=== PATIENT | female | born 1940 | race Caucasian/White ===

== ENCOUNTER 2019-03-05 06:17 | Inpatient (IN) | payer MEDICARE ==
[~2019-03-05] VITALS: Ht 160 cm; Wt 62.5 kg
[2019-03-05 07:14] LABS: BASOPHILS # (AUTO) 0.1 X10'3 (0-0.2); BASOPHILS % (AUTO) 0.5 % (0-1); EOSINOPHILS % (AUTO) 0.2 % (0-6); HEMATOCRIT 43.1 % (35.0-45.0); HEMOGLOBIN 14.5 g/dl (12.0-16.0); LYMPHOCYTES # (AUTO) 1.5 X10'3 (1.1-4.8); LYMPHOCYTES % (AUTO) 13.6 % (21-51); MEAN CORPUSCULAR HGB CONC 33.7 g/dL (33.0-36.5); MEAN PLATELET VOLUME 6.8 FL (7.4-10.4); MONOCYTES # (AUTO) 0.8 X10'3 (0-0.9); MONOCYTES % (AUTO) 7.4 % (2-12); NEUTROPHILS # (AUTO) 8.4 X10'3 (1.8-7.7); NEUTROPHILS % (AUTO) 78.3 % (42-75); PLATELET COUNT 281 X10'3 (140-440); RED BLOOD COUNT 4.14 X10'6 (4.20-5.60); RED CELL DISTRIBUTION WIDTH 15.6 % (11.5-14.5); WHITE BLOOD COUNT 10.7 X10'3 (4.5-11.0)
[2019-03-05 07:21] LABS: PARTIAL THROMBOPLASTIN TIME 28 SECONDS (22-32)
[2019-03-05 07:29] LABS: ALANINE AMINOTRANSFERASE 27 U/L (12-78); ALBUMIN 3.7 G/DL (3.4-5.0); ALBUMIN/GLOBULIN RATIO 0.9 (1.1-1.5); ALKALINE PHOSPHATASE 55 IU/L (46-116); ANION GAP 10 (8-16); ASPARTATE AMINO TRANSFERASE 18 U/L (10-37); BILIRUBIN,TOTAL 0.3 MG/DL (0.1-1.0); BLOOD UREA NITROGEN 14 MG/DL (7-18); BUN/CREATININE RATIO 16.9 (6.6-38.0); CALCIUM 9.4 MG/DL (8.5-10.1); CHLORIDE 104 MMOL/L (99-107); CREATININE 0.83 MG/DL (0.40-0.90); GLUCOSE 128 MG/DL (70-104); POTASSIUM 3.8 MMOL/L (3.5-5.1); SODIUM 140 MMOL/L (135-145); TOTAL CARBON DIOXIDE 25.7 MMOL/L (24-32); TOTAL PROTEIN 7.7 G/DL (6.4-8.2); eGFR 66 ML/MIN
[2019-03-05 08:34] LABS: CLARITY,URINE SLIGHTLY CLOUDY (Clear); COLOR,URINE YELLOW (Yellow); GLUCOSE, URINE NEGATIVE (Neg); KETONES,URINE 15 mg/dl (Neg); LEUKOCYTE ESTERASE ,URINE TRACE (Neg); NITRITES, URINE NEGATIVE (Neg); OCCULT BLOOD,URINE TRACE-INTACT (Neg); PH,URINE 7.5 (4.8-8.0); PROTEIN,URINE NEGATIVE (Neg); UROBILINOGEN,URINE 0.2 E.U/dL (0.2-1.0)
[2019-03-05 08:37] LABS: UA COLLECTION TYPE CLN CATCH MIDSTREAM
[2019-03-05 08:41] LABS: SQUAMOUS EPITHELIAL CELL,UR MANY /LPF (FEW)
[2019-03-05 08:42] LABS: BACTERIA,URINE FEW /HPF (Neg); WBC CLUMPS,URINE FEW /HPF (NEGATIVE)
[2019-03-05] MEDS ORDERED: CITA20TA28 PO (08:54)
[2019-03-05] MEDS ORDERED: SYN0.088T PO (08:54)
[2019-03-05] MEDS ORDERED: DENO60DI SQ (08:54)
[2019-03-05] MEDS ORDERED: potassium Cl 20 mEq SR tablet PO PRN ×2 (09:35)
[2019-03-05] MEDS ORDERED: ondansetron/PF 4mg/2ml inj IV PRN (09:35)
[2019-03-05] MEDS ORDERED: HYDROcodone/acetaminophen 10/325mg tab PO PRN (09:35)
[2019-03-05] MEDS ORDERED: magnesium 4gm in 100ml NS 100 ML IV PRN (09:35)
[2019-03-05] MEDS ORDERED: acetaminophen 650mg rectal suppository RC PRN (09:35)
[2019-03-05] MEDS ORDERED: diphenhydrAMINE 25mg capsule PO PRN (09:35)
[2019-03-05] MEDS ORDERED: diphenhydrAMINE 50 mg/ml inj IV PRN (09:35)
[2019-03-05] MEDS ORDERED: mag hydrox/Alum hydrox/simeth 30ml oral suspension PO PRN (09:35)
[2019-03-05] MEDS ORDERED: metoclopramide 5 mg/ml inj IV PRN (09:35)
[2019-03-05] MEDS ORDERED: HYDROcodone/acetaminophen 5mg/325mg tablet PO PRN (09:35)
[2019-03-05] MEDS ORDERED: magnesium Cl slow-release 64mg tablet PO PRN (09:35)
[2019-03-05] MEDS ORDERED: magnesium hydroxide 30ml (MOM) UD suspension PO PRN (09:35)
[2019-03-05] MEDS ORDERED: acetaminophen 325mg tablet PO PRN ×2 (09:35)
[2019-03-05] MEDS ORDERED: magnesium 2GM in 50ml NS 50 ML IV PRN (09:35)
[2019-03-05] MEDS: K and/or MAG REPLACEMENT MC SCH (09:35)
[2019-03-05] MEDS ORDERED: potassium CL 10mEq/100ml bag 100 ML IV PRN ×2 (09:35)
[2019-03-05] MEDS ORDERED: morphine 2 MG/ML inj. syringe IV PRN ×2 (09:35)
[2019-03-05] MEDS ORDERED: ondansetron/PF 4mg/2ml inj IV ONE (09:45)
[2019-03-05] MEDS ORDERED: morphine 4 MG/ML inj SYRINge IV PRN (09:45)
[2019-03-05] MEDS: normal saline 1000ml 1,000 ML IV SCH ×2 (10:15→21:42)
[2019-03-05] MEDS: metroNIDAZOLE-Flagyl 500mg/NS 100 ML IV SCH ×2 (10:15→16:20)
[2019-03-05] MEDS ORDERED: CITA-116 PO (10:20)
[2019-03-05] MEDS ORDERED: LEVO50TA8 PO (10:20)
[2019-03-05 10:23] LABS: HEMOGLOBIN A1C 5.7 % (4.5-6.2)
[2019-03-05] MEDS: levoFLOXACIN-Levaquin 750MG/D5 150 ML IV SCH (12:36)
[2019-03-05 15:00] VITALS: BP 110/58
[2019-03-05] MEDS ORDERED: PEG 3350/Na sulf,bicarb,Cl/KCl oral sol 4 liter bottle PO ONE (18:15)
--- NOTE | 2019-03-05 18:19 | NUR ---
Received report from MARYELLEN Michelle. Assumed patient care with MARYELLEN Larson. Patient resting comfortably with eyes closed with even respirations on room air. Sitter at bedside. Call light and items of frequent use within reach. Will continue to monitor. Addendum: 03/06/19 at 0243 by Erma Cook RN PCT at bedside
--- NOTE | 2019-03-05 18:35 | NUR ---
Patient in room NGOC 360. I have received report from MARYELLEN Michelle and had the opportunity to ask questions and assume patient care.
--- NOTE | 2019-03-05 18:37 | NUR ---
Problems reprioritized. Patient report given, questions answered & plan of care reviewed with MARYELLEN Ritchie and MARYELLEN Larson.
[2019-03-05 19:00] VITALS: BP 107/52
[2019-03-05] MEDS: lactobacillus rhamnosus 10,000 MMU CELLS/CAPSULE PO SCH (19:28)
[2019-03-05] MEDS ORDERED: temazepam 15mg capsule PO PRN (21:00)
[2019-03-05 21:39] LABS: OCCULT BLOOD STOOL POSITIVE (Neg)
[2019-03-06] VITALS (9 sets, daily range): BP systolic 102–128; BP diastolic 44–70
[2019-03-06] MEDS: metroNIDAZOLE-Flagyl 500mg/NS 100 ML IV SCH ×3 (00:09→18:21)
[2019-03-06 06:13] LABS: BASOPHILS % (AUTO) 0.4 % (0-1); EOSINOPHILS # (AUTO) 0.1 X10'3 (0-0.9); EOSINOPHILS % (AUTO) 0.7 % (0-6); HEMATOCRIT 37.7 % (35.0-45.0); HEMOGLOBIN 12.6 g/dl (12.0-16.0); LYMPHOCYTES % (AUTO) 19.2 % (21-51); MEAN CORPUSCULAR HEMOGLOBIN 35.2 PG (27.0-31.0); MEAN CORPUSCULAR HGB CONC 33.6 g/dL (33.0-36.5); MEAN CORPUSCULAR VOLUME 104.8 FL (78-98); MEAN PLATELET VOLUME 6.9 FL (7.4-10.4); MONOCYTES # (AUTO) 1.4 X10'3 (0-0.9); MONOCYTES % (AUTO) 13.4 % (2-12); NEUTROPHILS # (AUTO) 6.7 X10'3 (1.8-7.7); NEUTROPHILS % (AUTO) 66.3 % (42-75); PLATELET COUNT 249 X10'3 (140-440); RED CELL DISTRIBUTION WIDTH 16.2 % (11.5-14.5); WHITE BLOOD COUNT 10.2 X10'3 (4.5-11.0)
--- NOTE | 2019-03-06 06:15 | NUR ---
Problems reprioritized. Patient report given, questions answered & plan of care reviewed with MARYELLEN Michelle.
--- NOTE | 2019-03-06 06:15 | NUR ---
Problems reprioritized. Patient report given, questions answered & plan of care reviewed with MARYELLEN Michelle.
--- NOTE | 2019-03-06 06:17 | NUR ---
Patient in room NGOC 360. I have received report from Marsha RN and MARYELLEN Ritchie and had the opportunity to ask questions and assume patient care.
[2019-03-06 06:36] LABS: ALANINE AMINOTRANSFERASE 18 U/L (12-78); ALBUMIN 2.9 G/DL (3.4-5.0); ALBUMIN/GLOBULIN RATIO 0.9 (1.1-1.5); ALKALINE PHOSPHATASE 42 IU/L (46-116); ANION GAP 5 (8-16); ASPARTATE AMINO TRANSFERASE 15 U/L (10-37); BILIRUBIN,TOTAL 0.3 MG/DL (0.1-1.0); BLOOD UREA NITROGEN 6 MG/DL (7-18); BUN/CREATININE RATIO 8.6 (6.6-38.0); CALCIUM 8.3 MG/DL (8.5-10.1); CHLORIDE 112 MMOL/L (99-107); CHOL/HDL RATIO 2.4 (0.00-4.99); CHOLESTEROL 142 MG/DL (0-200); GLUCOSE 102 MG/DL (70-104); HDL CHOLESTEROL 60 MG/DL (35-60); LDL CHOLESTEROL 74 MG/DL (50-100); PHOSPHORUS 1.8 MG/DL (2.3-4.5); POTASSIUM 3.4 MMOL/L (3.5-5.1); SODIUM 144 MMOL/L (135-145); TOTAL CARBON DIOXIDE 26.8 MMOL/L (24-32); TOTAL PROTEIN 6.2 G/DL (6.4-8.2); TRIGLYCERIDES 41 MG/DL (20-135); eGFR 81 ML/MIN
[2019-03-06] MEDS: lactobacillus rhamnosus 10,000 MMU CELLS/CAPSULE PO SCH ×2 (08:00→19:37)
[2019-03-06] MEDS: K and/or MAG REPLACEMENT MC SCH (08:00)
[2019-03-06] MEDS: levoFLOXACIN-Levaquin 750MG/D5 150 ML IV SCH (08:20)
[2019-03-06] MEDS: normal saline 1000ml 1,000 ML IV SCH ×2 (08:20→15:34)
[2019-03-06] MEDS: pantoprazole 40 MG vial IV SCH (08:21)
[2019-03-06] MEDS ORDERED: potassium Cl 40MEQ/NS 500ml 500 ML IV ONE (09:50)
[2019-03-06 10:12] LABS: C DIFF SPECIMEN=DIARRHEA? ACCEPTABLE; C DIFFICILE TOXINS A&B NEGATIVE (Neg)
[2019-03-06 10:13] LABS: C DIFF ANTIGEN NEGATIVE (NEGATIVE)
[2019-03-06] MEDS ORDERED: fentaNYL/PF 50MCG/1 ML 2ML syringe ONE (15:37)
[2019-03-06] MEDS ORDERED: MIDAZolam 5mg/5ml vial ONE (15:37)
--- NOTE | 2019-03-06 16:37 | NUR ---
REVIEWED STUDENT NURSE CHARTING
--- NOTE | 2019-03-06 17:40 | NUR ---
Student documentation: I have reviewed and agree with all interventions, assessments performed and documented by Lisa Casiano .
--- NOTE | 2019-03-06 18:30 | NUR ---
Received report from MARYELLEN Michelle. Patient is awake and alert on room air, in no apparent distress. Call light and items of frequent use within reach. Will continue to monitor.
--- NOTE | 2019-03-06 18:40 | NUR ---
Problems reprioritized. Patient report given, questions answered & plan of care reviewed with MARYELLEN Ritchie.
[2019-03-07] VITALS: BP 99/41
[2019-03-07] MEDS: metroNIDAZOLE-Flagyl 500mg/NS 100 ML IV SCH ×2 (00:14→07:27)
[2019-03-07] MEDS: normal saline 1000ml 1,000 ML IV SCH ×2 (00:18→11:34)
[2019-03-07 05:36] LABS: BASOPHILS # (AUTO) 0.1 X10'3 (0-0.2); BASOPHILS % (AUTO) 0.6 % (0-1); EOSINOPHILS # (AUTO) 0.3 X10'3 (0-0.9); EOSINOPHILS % (AUTO) 3.2 % (0-6); HEMATOCRIT 35.8 % (35.0-45.0); HEMOGLOBIN 12.3 g/dl (12.0-16.0); LYMPHOCYTES # (AUTO) 2.3 X10'3 (1.1-4.8); MEAN CORPUSCULAR HEMOGLOBIN 35.6 PG (27.0-31.0); MEAN CORPUSCULAR HGB CONC 34.4 g/dL (33.0-36.5); MEAN CORPUSCULAR VOLUME 103.5 FL (78-98); MEAN PLATELET VOLUME 6.8 FL (7.4-10.4); MONOCYTES # (AUTO) 1.2 X10'3 (0-0.9); MONOCYTES % (AUTO) 12.8 % (2-12); NEUTROPHILS # (AUTO) 5.3 X10'3 (1.8-7.7); NEUTROPHILS % (AUTO) 58.4 % (42-75); PLATELET COUNT 236 X10'3 (140-440); RED BLOOD COUNT 3.46 X10'6 (4.20-5.60); WHITE BLOOD COUNT 9.1 X10'3 (4.5-11.0)
[2019-03-07 05:49] LABS: ALANINE AMINOTRANSFERASE 22 U/L (12-78); ALBUMIN 2.7 G/DL (3.4-5.0); ALBUMIN/GLOBULIN RATIO 0.9 (1.1-1.5); ALKALINE PHOSPHATASE 37 IU/L (46-116); ANION GAP 5 (8-16); ASPARTATE AMINO TRANSFERASE 16 U/L (10-37); BILIRUBIN,TOTAL 0.3 MG/DL (0.1-1.0); BLOOD UREA NITROGEN 2 MG/DL (7-18); BUN/CREATININE RATIO 2.8 (6.6-38.0); CALCIUM 7.6 MG/DL (8.5-10.1); CHLORIDE 114 MMOL/L (99-107); CREATININE 0.71 MG/DL (0.40-0.90); GLUCOSE 92 MG/DL (70-104); MAGNESIUM 1.9 MG/DL (1.5-2.4); PHOSPHORUS 1.7 MG/DL (2.3-4.5); SODIUM 145 MMOL/L (135-145); TOTAL PROTEIN 5.7 G/DL (6.4-8.2); eGFR 80 ML/MIN
--- NOTE | 2019-03-07 06:30 | NUR ---
Problems reprioritized. Patient report given, questions answered & plan of care reviewed with MARYELLEN Michelle.
--- NOTE | 2019-03-07 06:30 | NUR ---
Patient in room NGOC 360. I have received report from MARYELLEN Ritchie and had the opportunity to ask questions and assume patient care.
[2019-03-07] MEDS: K and/or MAG REPLACEMENT MC SCH (07:14)
[2019-03-07 07:21] VITALS: BP 122/56
[2019-03-07] MEDS: lactobacillus rhamnosus 10,000 MMU CELLS/CAPSULE PO SCH (07:27)
[2019-03-07] MEDS: pantoprazole 40 MG vial IV SCH (07:27)
[2019-03-07] MEDS: levoFLOXACIN-Levaquin 750MG/D5 150 ML IV SCH (09:20)
[2019-03-07 11:00] VITALS: BP 121/53
[2019-03-07] MEDS ORDERED: PANT40TA4 PO (12:35)
[2019-03-07] MEDS ORDERED: METR-159 PO (12:35)
[2019-03-07] MEDS ORDERED: LACT1CAP26 PO (12:35)
[2019-03-07] MEDS ORDERED: LEVO500T89 PO (12:35)
--- NOTE | 2019-03-07 14:00 | NUR ---
Patient discharged home via family and taken from unit via wheelchair with x1 staff. Patient alert, oriented, and in no apparent distress at time of discharge. PIV removed with cannula intact, tele monitor removed and tele chambers notified. Patient was sent with prescription for new medications and these were sent into [facility] per patient request. Patient and family were given discharge instructions and given time for questions and answers. Much of this time was spent discussing appropriate diet choices and they were sent with diet guides from the distribution analyst. Patient and family stated an understanding of these instructions. Patient took all belongings with her.
[2019-03-07] MEDS ORDERED: NEUPHOSK PO (17:04)
--- NOTE | 2019-03-07 17:09 | NUR ---
Patient discharged home but phos was 1.7. Dr. 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 Patient called and informed of this and patient stated that she is going to go and pick the medication up tonight and start taking it.
[2019-03-09 11:41] LABS: OCCULT BLOOD STOOL POSITIVE (Neg)
== END 2019-03-07 14:00 | disposition home or self-care (01) | DRG 377 ==
LOC: ER 06:17 → ED HOLD 09:58 → SUR 3N 14:45
PROVIDERS: ADMIT Family Medicine; ATTEND Family Medicine
PROC: 0DBM8ZX Excision of Descending Colon, Via Natural or Artificial Opening Endoscopic, Diagnostic (ICD-10-PCS; principal; 2019-03-06)
PROC: 0DBH8ZZ Excision of Cecum, Via Natural or Artificial Opening Endoscopic (ICD-10-PCS; 2019-03-06)
DX: K57.31 Diverticulosis of large intestine without perforation or abscess with bleeding (principal); K55.039 Acute (reversible) ischemia of large intestine, extent unspecified; K63.3 Ulcer of intestine; N39.0 Urinary tract infection, site not specified; E03.9 Hypothyroidism, unspecified; F32.9 Major depressive disorder, single episode, unspecified; K63.5 Polyp of colon; K64.8 Other hemorrhoids; M81.0 Age-related osteoporosis without current pathological fracture; Z88.1 Allergy status to other antibiotic agents; Z88.8 Allergy status to other drugs, medicaments and biological substances; Z79.899 Other long term (current) drug therapy; Z79.890 Hormone replacement therapy; Z80.1 Family history of malignant neoplasm of trachea, bronchus and lung; Z87.891 Personal history of nicotine dependence; Z90.710 Acquired absence of both cervix and uterus; Z90.49 Acquired absence of other specified parts of digestive tract; Z98.41 Cataract extraction status, right eye; Z98.42 Cataract extraction status, left eye
CPT/HCPCS: 36415; 45380; 45381; 45382; 45385; 71045; 74176; 80053; 80061; 81001; 82272; 83036; 83605; 83735; 84100; 84443; 85025; 85610; 85730; 86885; 86900; 86901; 87040; 87045; 87046; 87077; 87081; 87088; 87324; 87449; 88305; 89055; 93005; 99152; 99153; 99285; A4620; C1773; C9113; G0378; J1956; J2250; J2270; J2405; J3010; J3480; J3490; J7030; J7040

== ENCOUNTER 2019-05-29 14:08 | Emergency (ER) | payer MEDICARE ==
[~2019-05-29] VITALS: Ht 160 cm; Wt 61.9 kg
[~2019-05-29 14:08] MED LIST: CITA-116 PO; DENO60DI SQ; LACT1CAP26 PO; LEVO50TA8 PO; NEUPHOSK PO; PANT40TA4 PO
[2019-05-29 15:20] LABS: BASOPHILS # (AUTO) 0.1 X10'3 (0-0.2); BASOPHILS % (AUTO) 0.5 % (0-1); EOSINOPHILS % (AUTO) 0.3 % (0-6); HEMATOCRIT 42.1 % (35.0-45.0); HEMOGLOBIN 14.1 g/dl (12.0-16.0); LYMPHOCYTES # (AUTO) 2.6 X10'3 (1.1-4.8); LYMPHOCYTES % (AUTO) 17.1 % (21-51); MEAN CORPUSCULAR HEMOGLOBIN 34.4 PG (27.0-31.0); MEAN CORPUSCULAR HGB CONC 33.4 g/dL (33.0-36.5); MEAN PLATELET VOLUME 6.6 FL (7.4-10.4); MONOCYTES # (AUTO) 2.2 X10'3 (0-0.9); MONOCYTES % (AUTO) 14.7 % (2-12); NEUTROPHILS # (AUTO) 10.1 X10'3 (1.8-7.7); NEUTROPHILS % (AUTO) 67.4 % (42-75); PLATELET COUNT 344 X10'3 (140-440); RED BLOOD COUNT 4.09 X10'6 (4.20-5.60); RED CELL DISTRIBUTION WIDTH 15.8 % (11.5-14.5)
[2019-05-29 15:28] LABS: CLARITY,URINE TURBID (Clear); COLOR,URINE STRAW (Yellow); GLUCOSE, URINE NEGATIVE (Neg); KETONES,URINE NEGATIVE (Neg); LEUKOCYTE ESTERASE ,URINE LARGE (Neg); NITRITES, URINE NEGATIVE (Neg); OCCULT BLOOD,URINE LARGE (Neg); PROTEIN,URINE 100 mg/dl (Neg); UROBILINOGEN,URINE 0.2 E.U/dL (0.2-1.0)
[2019-05-29 15:33] LABS: UA COLLECTION TYPE CLN CATCH MIDSTREAM
[2019-05-29 15:35] LABS: ALANINE AMINOTRANSFERASE 23 U/L (12-78); ALBUMIN 3.3 G/DL (3.4-5.0); ALBUMIN/GLOBULIN RATIO 0.8 (1.1-1.5); ALKALINE PHOSPHATASE 55 IU/L (46-116); ANION GAP 7 (8-16); ASPARTATE AMINO TRANSFERASE 12 U/L (10-37); BILIRUBIN,TOTAL 0.4 MG/DL (0.1-1.0); BLOOD UREA NITROGEN 16 MG/DL (7-18); BUN/CREATININE RATIO 12.7 (6.6-38.0); CALCIUM 8.9 MG/DL (8.5-10.1); CHLORIDE 103 MMOL/L (99-107); CREATININE 1.26 MG/DL (0.40-0.90); GLUCOSE 99 MG/DL (70-104); LIPASE < 50 U/L (73-393); POTASSIUM 4.2 MMOL/L (3.5-5.1); SODIUM 137 MMOL/L (135-145); TOTAL CARBON DIOXIDE 26.8 MMOL/L (24-32); TOTAL PROTEIN 7.4 G/DL (6.4-8.2); eGFR 41 ML/MIN
[2019-05-29 15:35] LABS: MUCUS STRANDS NONE SEEN /LPF (Neg); SQUAMOUS EPITHELIAL CELL,UR FEW /LPF (FEW); TRANSITIONAL EPI CELLS,URINE FEW /HPF
[2019-05-29 15:36] LABS: BACTERIA,URINE 4+ /HPF (Neg); WBC,URINE TNTC /HPF (0-4)
[2019-05-29 15:42] LABS: TOTAL CELLS COUNTED 100
[2019-05-29 15:46] LABS: PLATELET ESTIMATE NORMAL
[2019-05-29] MEDS ORDERED: CefTRIAXone/D5W-Rocephin 1gm 50 ML IV ONE (15:55)
[2019-05-29] MEDS ORDERED: CEPH500C5 PO (16:38)
[2019-05-29 17:07] VITALS: BP 108/55
== END 2019-05-29 17:09 | disposition home or self-care (01) ==
LOC: ER 14:08
DX: N20.0 Calculus of kidney (principal); N10 Acute pyelonephritis; R10.84 Generalized abdominal pain; E03.9 Hypothyroidism, unspecified; Z90.710 Acquired absence of both cervix and uterus; Z88.1 Allergy status to other antibiotic agents; Z79.899 Other long term (current) drug therapy
CPT/HCPCS: 36415; 74176; 80053; 81001; 83690; 85025; 87077; 87088; 87186; 96365; 99284; J0696

== ENCOUNTER 2022-01-16 07:05 | Inpatient (IN) | payer MEDICARE ==
[2022-01-08 11:50] LABS: BASOPHILS % (AUTO) 0.8 % (0-1); EOSINOPHILS # (AUTO) 0.2 X10'3 (0-0.9); EOSINOPHILS % (AUTO) 2.4 % (0-6); LYMPHOCYTES # (AUTO) 2.2 X10'3 (1.1-4.8); LYMPHOCYTES % (AUTO) 34.7 % (21-51); MEAN CORPUSCULAR HEMOGLOBIN 34.6 PG (27.0-31.0); MEAN CORPUSCULAR VOLUME 104.8 FL (78-98); MEAN PLATELET VOLUME 6.8 FL (7.4-10.4); MONOCYTES # (AUTO) 0.8 X10'3 (0-0.9); MONOCYTES % (AUTO) 12.4 % (2-12); NEUTROPHILS # (AUTO) 3.2 X10'3 (1.8-7.7); NEUTROPHILS % (AUTO) 49.7 % (42-75); PRE OP HEMATOCRIT 42.6 % (35.0-45.0); PRE OP HEMOGLOBIN 14.1 g/dL (12.0-16.0); PRE OP PLATELET COUNT 305 X10'3 (140-440); RED BLOOD COUNT 4.06 X10'6 (4.20-5.60); RED CELL DISTRIBUTION WIDTH 15.8 % (11.5-14.5)
[2022-01-08 12:04] LABS: ALBUMIN 4.1 G/DL (3.4-5.0); ALBUMIN/GLOBULIN RATIO 1.1 (1.1-1.5); ALKALINE PHOSPHATASE 57 IU/L (46-116); BLOOD UREA NITROGEN 25 MG/DL (7-18); BUN/CREATININE RATIO 29.1 (6.6-38.0); CALCIUM 9.4 MG/DL (8.5-10.1); CHLORIDE 106 MMOL/L (99-107); CREATININE 0.86 MG/DL (0.40-0.90); PRE OP ALT 29 U/L (30-65); PRE OP ANION GAP 8 (8-16); PRE OP AST 22 U/L (10-37); PRE OP BILIRUB, TOTAL 0.3 MG/DL (0.0-1.0); PRE OP GLUCOSE 91 MG/DL (70-104); PRE OP POTASSIUM 4.1 MMOL/L (3.4-5.1); PRE OP SODIUM 143 MMOL/L (135-145); TOTAL CARBON DIOXIDE 28.7 MMOL/L (24-32); TOTAL PROTEIN 7.8 G/DL (6.4-8.2); eGFR 63 ML/MIN
[~2022-01-16] VITALS: Ht 160 cm; Wt 67.9 kg
[2022-01-16] VITALS (22 sets, daily range): BP systolic 81–122; BP diastolic 34–65
[~2022-01-16 07:05] MED LIST changes: +CALC1TAB PO; +HYDROcodone/acetaminophen 10/325mg tab PO PRN; +HYDROmorphone 1 mg/ml syringe IV PRN; +HYDROmorphone inj. 0.5 MG/0.5 ML DISP.SYRIN IV PRN; -LACT1CAP26 PO; -NEUPHOSK PO; -PANT40TA4 PO; +PREVCR VG; +TRAZ-251 PO; +acetaminophen 325mg tablet PO ONE; +acetaminophen 325mg tablet PO PRN; +bisacodyl 10mg suppository rectal RC PRN; +ceFAZolin inj. 2,000 MG in dextrose 5%-water 100 ML IV ONE; +celeCOXIB 100mg capsule PO ONE; +diphenhydrAMINE 25mg capsule PO PRN; +famotidine 20mg tablet PO ONE; +gabapentin 300mg capsule PO ONE; +magnesium hydroxide 30ml (MOM) UD suspension PO PRN; +metoclopramide 5 mg/ml inj IV ONE; +naloxone 0.4 mg/ml inj IV PRN; +ondansetron/PF 4mg/2ml inj IV PRN; +oxyCODONE SR 10mg (sust. release) tab -2 tabs (20mg) PO ONE; +ringers solution, lacted 1,000 ML IV SCH; +tranexamic acid inj. 1,000 MG in normal saline 100ml IV soln 90 ML IV ONE; +vancomycin/NS 1 GM in NS 250 ML IV ONE
--- NOTE | 2022-01-16 07:15 | NUR ---
CSM: PEDAL PULSES MARKED AND PRESENT. PATIENT WENT ONLINE AND WATCHED THE VIDEO. MUPIROCIN WAS NOT ORDERED FOR THIS PATIENT. EDUCATED PATIENT ON THE USE OF THE INCENTIVE SPIROMETER AND ITS IMPORTANCE.
[2022-01-16] MEDS ORDERED: ROPIVAcaine 0.5% (5mg/ml) 30ml vial ONE ×3 (09:45→12:03)
[2022-01-16] MEDS ORDERED: cloNIDine hcl/PF 100mcg/ml inj ONE (09:45)
[2022-01-16] MEDS ORDERED: ketorolac trometh. 30mg/ml inj. ONE (09:45)
[2022-01-16] MEDS ORDERED: vancomycin 1,000mg inj ONE (09:45)
[2022-01-16] MEDS ORDERED: epiNEPHrine 1 mg/ml inj ONE (09:45)
[2022-01-16] MEDS ORDERED: fentaNYL/PF 50MCG/1 ML 2ML syringe ONE (10:28)
[2022-01-16] MEDS ORDERED: MIDAZolam 1 MG/ML 5ML VIAL ONE (10:28)
--- NOTE | 2022-01-16 12:31 | NUR ---
Received from OR via ORTHO BED WITH [facility] , accompanied by Anesthesiologist SANTOSH and report given by Anesthesiolgist. PATIENT WITH 18G PIV IN RIGHT UE RUNNING LR AT 100. DENIES PAIN AT THIS TIME. SENSATION DIMINISHED TO LE'S BILATERALLY FROM SPINAL ANESTHETIC AND NERVE BLOCK TO LEFT LE. PORT PRESENT AND IS CDI . DENIES PAIN AND VSS AT THIS TIME. WILL CONTINUE TO ASSESS. SCDS DONNED AND ICE IS TO LEFT KNEE WRAP. JOHNNIE Coulter DONNED FOR PATIENT COMFORT. Addendum: 01/16/22 at 1246 by Timur Zhang RN, RN Amended: Links added.
[2022-01-16] MEDS ORDERED: proCHLORperazine 10 MG/2 ml inj IV PRN (12:35)
[2022-01-16] MEDS ORDERED: ringers solution, lacted 1,000 ML IV SCH (12:35)
[2022-01-16] MEDS ORDERED: morphine 4 MG/ML inj SYRINge IV PRN (12:35)
[2022-01-16] MEDS ORDERED: morphine 2 MG/ML inj. syringe IV PRN (12:35)
[2022-01-16] MEDS ORDERED: ondansetron/PF 4mg/2ml inj IV PRN (12:35)
[2022-01-16] MEDS ORDERED: meperidine/PF 25mg/ml syringe IV PRN ×3 (12:35)
[2022-01-16] MEDS ORDERED: ROPIVAcaine 0.2% (10 MG/5 ML) BOLUS INJECTION ADDCANAL PRN (12:35)
[2022-01-16] MEDS: ROPIVAcaine 0.2%/PF PUMP/bolus 545 ML ADDCANAL SCH (13:15)
--- NOTE | 2022-01-16 14:01 | NUR ---
TRANSFER: CARE OF PATIENT AND REPORT HAS BEEN CALLED. ALL QUESTIONS ANSWERED TO ACCEPTING RN. PATIENT HAS MET ALL CRITERIA FOR TRANSFER TO THE [facility] ICU ORTHO FLOOR. VSS. DRESSINGS INTACT. BED LOW, CALL LIGHT PRESENT AND 2 RAILS UP. RN PRESENT TO ACCEPT. ONE BAG OF BELONGINGS SENT WITH PATIENT. Addendum: 01/16/22 at 1431 by Timur Zhang RN RN Amended: Links added.
--- NOTE | 2022-01-16 14:30 | NUR ---
Patient in room . I have received report from Timur BOJORQUEZ and had the opportunity to ask questions and assume patient care. patit orientated to room knee brace in place On Q and marilynn insitu. VSS. present. Dressing CDI. will continue to monitor
[2022-01-16] MEDS ORDERED: tranexamic acid inj. 700 MG in normal saline 100ml IV soln 93 ML IV ONE (15:00)
[2022-01-16] MEDS: potassium cl 20mEq in 1/2 NS 1,000 ML IV SCH (16:12)
[2022-01-16] MEDS: ceFAZolin/D5W- 1GM premix 50 ML IV SCH (16:23)
--- NOTE | 2022-01-16 18:30 | NUR ---
Pt. in 4011B Problems reprioritized. Patient report given, questions answered & plan of care reviewed with Moraima BOJORQUEZ.
[2022-01-16] MEDS ORDERED: vancomycin/NS 1 GM ADD-VANTAGE 250 ML IV SCH (20:00)
[2022-01-16] MEDS: traZODone 50mg tablet PO SCH (22:18)
[2022-01-16] MEDS: gabapentin 300mg capsule PO SCH (22:18)
[2022-01-16] MEDS: ascorbic acid 500mg tablet PO SCH (22:19)
[2022-01-16] MEDS: sennosides 8.6mg tablet PO SCH (22:19)
--- NOTE | 2022-01-16 23:47 | NUR ---
Patient began shaking at 2336. MARYELLEN Del Toro immediately stopped Vanco. Patient appeared to have no rash, no shortness of breath, and no fever at this time. Dr. Canseco was paged at [phone]. Spoke with Dr. Canseco at [phone] and she advised/gave instructions to restart Vanco and monitor vitals and monitor for signs and symptoms.
[2022-01-17] VITALS (7 sets, daily range): BP systolic 77–111; BP diastolic 30–48
[2022-01-17] MEDS: HYDROcodone/acetaminophen 10/325mg tab PO PRN ×4 (00:06→20:27)
[2022-01-17] MEDS: ceFAZolin/D5W- 1GM premix 50 ML IV SCH (02:23)
[2022-01-17 05:46] LABS: BASOPHILS # (AUTO) 0.1 X10'3 (0-0.2); BASOPHILS % (AUTO) 0.8 % (0-1); EOSINOPHILS # (AUTO) 0.1 X10'3 (0-0.9); HEMATOCRIT 38.1 % (35.0-45.0); HEMOGLOBIN 12.6 g/dl (12.0-16.0); LYMPHOCYTES # (AUTO) 1.5 X10'3 (1.1-4.8); LYMPHOCYTES % (AUTO) 20.5 % (21-51); MEAN CORPUSCULAR HEMOGLOBIN 34.9 PG (27.0-31.0); MEAN CORPUSCULAR HGB CONC 33.1 g/dL (33.0-36.5); MEAN CORPUSCULAR VOLUME 105.2 FL (78-98); MEAN PLATELET VOLUME 6.5 FL (7.4-10.4); MONOCYTES # (AUTO) 1.1 X10'3 (0-0.9); MONOCYTES % (AUTO) 15.1 % (2-12); NEUTROPHILS # (AUTO) 4.4 X10'3 (1.8-7.7); NEUTROPHILS % (AUTO) 61.6 % (42-75); PLATELET COUNT 233 X10'3 (140-440); RED BLOOD COUNT 3.62 X10'6 (4.20-5.60); RED CELL DISTRIBUTION WIDTH 15.8 % (11.5-14.5); WHITE BLOOD COUNT 7.2 X10'3 (4.5-11.0)
[2022-01-17 06:04] LABS: ANION GAP 6 (8-16); CHLORIDE 111 MMOL/L (99-107); POTASSIUM 4.5 MMOL/L (3.5-5.1); SODIUM 144 MMOL/L (135-145); TOTAL CARBON DIOXIDE 26.8 MMOL/L (24-32)
--- NOTE | 2022-01-17 06:41 | NUR ---
Problems reprioritized. Patient report given, questions answered & plan of care reviewed with MARYELLEN Valera.
--- NOTE | 2022-01-17 07:00 | NUR ---
REVIEWED CARE GIVER ASSESSMENT AND IN AGREEMENT
[2022-01-17] MEDS: calcium carbonate/vitamin D3 tablet PO SCH (07:53)
[2022-01-17] MEDS: aspirin 325mg tablet PO SCH (07:53)
[2022-01-17] MEDS: multivitamins, therapeutics tablet PO SCH (07:53)
[2022-01-17] MEDS: ascorbic acid 500mg tablet PO SCH ×2 (07:53→20:26)
[2022-01-17] MEDS: levoTHYROXINE 25mcg tablet PO SCH (07:54)
[2022-01-17] MEDS: citalopram 20mg tablet PO SCH (07:54)
[2022-01-17] MEDS: gabapentin 300mg capsule PO SCH ×3 (07:55→20:26)
--- NOTE | 2022-01-17 14:50 | NUR ---
PTx therapist stated pt's BP dropped to 77/31 and pt was symptomatic. PTx will revisit pt in am.
[2022-01-17] MEDS ORDERED: normal saline 500ml IV soln 500 ML IV ONE (15:05)
[2022-01-17] MEDS: potassium cl 20mEq in 1/2 NS 1,000 ML IV SCH ×4 (15:41→20:29)
--- NOTE | 2022-01-17 16:00 | NUR ---
Orthostatic VS at 0630 & 1455 were initially assessed/recorded by PTx. Orders received from MD for 500cc bolus.
--- NOTE | 2022-01-17 18:15 | NUR ---
Patient in room ORTHO 4011. I have received report from MARYELLEN Valera and had the opportunity to ask questions and assume patient care.
--- NOTE | 2022-01-17 18:30 | NUR ---
Patient report given, questions answered & plan of care reviewed with MARYELLEN Finnegan.
[2022-01-17] MEDS: celeCOXIB 100mg capsule PO SCH (20:26)
[2022-01-17] MEDS: sennosides 8.6mg tablet PO SCH (20:26)
[2022-01-17] MEDS: traZODone 50mg tablet PO SCH (20:26)
[2022-01-18] VITALS (8 sets, daily range): BP systolic 76–131; BP diastolic 35–90
[2022-01-18] MEDS: potassium cl 20mEq in 1/2 NS 1,000 ML IV SCH (03:07)
[2022-01-18 05:24] LABS: BASOPHILS % (AUTO) 0.3 % (0-1); EOSINOPHILS # (AUTO) 0.1 X10'3 (0-0.9); EOSINOPHILS % (AUTO) 1.2 % (0-6); HEMOGLOBIN 11.7 g/dl (12.0-16.0); LYMPHOCYTES # (AUTO) 1.5 X10'3 (1.1-4.8); LYMPHOCYTES % (AUTO) 21.4 % (21-51); MEAN CORPUSCULAR HGB CONC 33.4 g/dL (33.0-36.5); MEAN CORPUSCULAR VOLUME 104.8 FL (78-98); MEAN PLATELET VOLUME 6.7 FL (7.4-10.4); MONOCYTES # (AUTO) 1.4 X10'3 (0-0.9); MONOCYTES % (AUTO) 19.1 % (2-12); NEUTROPHILS # (AUTO) 4.2 X10'3 (1.8-7.7); PLATELET COUNT 231 X10'3 (140-440); RED BLOOD COUNT 3.34 X10'6 (4.20-5.60); RED CELL DISTRIBUTION WIDTH 15.8 % (11.5-14.5); WHITE BLOOD COUNT 7.2 X10'3 (4.5-11.0)
[2022-01-18 05:29] LABS: ALANINE AMINOTRANSFERASE 19 U/L (12-78); ALBUMIN 2.6 G/DL (3.4-5.0); ALBUMIN/GLOBULIN RATIO 0.8 (1.1-1.5); ALKALINE PHOSPHATASE 37 IU/L (46-116); ANION GAP 5 (8-16); ASPARTATE AMINO TRANSFERASE 21 U/L (10-37); BILIRUBIN,TOTAL 0.2 MG/DL (0.1-1.0); BLOOD UREA NITROGEN 14 MG/DL (7-18); BUN/CREATININE RATIO 17.3 (6.6-38.0); CALCIUM 8.2 MG/DL (8.5-10.1); CHLORIDE 105 MMOL/L (99-107); CREATININE 0.81 MG/DL (0.40-0.90); GLUCOSE 121 MG/DL (70-104); POTASSIUM 4.3 MMOL/L (3.5-5.1); SODIUM 137 MMOL/L (135-145); TOTAL CARBON DIOXIDE 26.6 MMOL/L (24-32); TOTAL PROTEIN 5.9 G/DL (6.4-8.2); eGFR 68 ML/MIN
--- NOTE | 2022-01-18 06:34 | NUR ---
Problems reprioritized. Patient report given, questions answered & plan of care reviewed with MARYELLEN Villagomez.
[2022-01-18] MEDS: aspirin 325mg tablet PO SCH (07:45)
[2022-01-18] MEDS: citalopram 20mg tablet PO SCH (07:45)
[2022-01-18] MEDS: calcium carbonate/vitamin D3 tablet PO SCH (07:46)
[2022-01-18] MEDS: levoTHYROXINE 25mcg tablet PO SCH (07:46)
[2022-01-18] MEDS: celeCOXIB 100mg capsule PO SCH ×2 (07:46→20:33)
[2022-01-18] MEDS: ascorbic acid 500mg tablet PO SCH ×2 (07:46→20:33)
[2022-01-18] MEDS: gabapentin 300mg capsule PO SCH ×3 (07:46→20:33)
[2022-01-18] MEDS: multivitamins, therapeutics tablet PO SCH (07:57)
[2022-01-18] MEDS ORDERED: normal saline 1000ml 1,000 ML IV ONE (10:35)
[2022-01-18] MEDS ORDERED: ketorolac trometh. 30mg/ml inj. IV PRN (11:15)
[2022-01-18] MEDS: acetaminophen 325mg tablet PO PRN ×2 (12:10→20:40)
--- NOTE | 2022-01-18 17:48 | NUR ---
pt experienced orthostatic hypotension this am while working with pt. pt was bolused 500ml NS per md order. pt felt much better after fluid bolus. Pt has to urinate very often, states she has been experiencing this for years. Pts pain has been managed with acetaminophen. pt states she feels she is ready for discharge tomorrow. Primary RN will contiue to monitor patient
[2022-01-18] MEDS: sennosides 8.6mg tablet PO SCH (20:32)
[2022-01-18] MEDS: traZODone 50mg tablet PO SCH (20:33)
[2022-01-19 05:59] LABS: MEAN CORPUSCULAR VOLUME 104.1 FL (78-98); RED CELL DISTRIBUTION WIDTH 15.9 % (11.5-14.5)
[2022-01-19 06:00] VITALS: BP 116/50
[2022-01-19 06:03] LABS: BASOPHILS % (AUTO) 0.4 % (0-1); EOSINOPHILS # (AUTO) 0.2 X10'3 (0-0.9); EOSINOPHILS % (AUTO) 2.6 % (0-6); HEMATOCRIT 34.9 % (35.0-45.0); HEMOGLOBIN 11.7 g/dl (12.0-16.0); LYMPHOCYTES # (AUTO) 1.6 X10'3 (1.1-4.8); LYMPHOCYTES % (AUTO) 17.4 % (21-51); MEAN CORPUSCULAR HGB CONC 33.6 g/dL (33.0-36.5); MONOCYTES # (AUTO) 1.4 X10'3 (0-0.9); MONOCYTES % (AUTO) 15.3 % (2-12); NEUTROPHILS # (AUTO) 5.7 X10'3 (1.8-7.7); NEUTROPHILS % (AUTO) 64.3 % (42-75); PLATELET COUNT 225 X10'3 (140-440); RED BLOOD COUNT 3.35 X10'6 (4.20-5.60); WHITE BLOOD COUNT 8.9 X10'3 (4.5-11.0)
--- NOTE | 2022-01-19 06:30 | NUR ---
Problems reprioritized. Patient report given, questions answered & plan of care reviewed with MARYELLEN ALCANTAR.
--- NOTE | 2022-01-19 06:47 | NUR ---
Patient in room ORTHO 4011. I have received report from MARYELLEN Benavides and had the opportunity to ask questions and assume patient care.
[2022-01-19] MEDS: ascorbic acid 500mg tablet PO SCH (07:22)
[2022-01-19] MEDS: citalopram 20mg tablet PO SCH (07:22)
[2022-01-19] MEDS: calcium carbonate/vitamin D3 tablet PO SCH (07:22)
[2022-01-19] MEDS: multivitamins, therapeutics tablet PO SCH (07:22)
[2022-01-19] MEDS: gabapentin 300mg capsule PO SCH (07:22)
[2022-01-19] MEDS: levoTHYROXINE 25mcg tablet PO SCH (07:22)
[2022-01-19] MEDS: celeCOXIB 100mg capsule PO SCH (07:22)
[2022-01-19] MEDS: aspirin 325mg tablet PO SCH (09:07)
[2022-01-19 10:00] VITALS: BP 104/52
[2022-01-19] MEDS: ROPIVAcaine 0.2%/PF PUMP/bolus 545 ML ADDCANAL SCH (11:20)
--- NOTE | 2022-01-19 12:00 | NUR ---
Patient discharge home with spouse. Discharge information was reviewed with patient and spouse whom both verbalize understanding. Staff assisted patient to personal vehicle with all belongings.
--- NOTE | 2022-01-19 16:35 | NUR ---
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
[2022-01-20] MEDS ORDERED: estrogens, conjug. vaginal cream 45gm tube VG SCH (08:00)
[2022-04-21] MEDS ORDERED: DENOSUMAB 60 MG/ML inj. SQ SCH (10:00)
== END 2022-01-19 12:30 | disposition home or self-care (01) | DRG 470 ==
LOC: PAS 07:05 → ORTHO 4S 16:30 → PAS 01-17 12:19 → ORTHO 4S 01-17 12:20
PROVIDERS: ADMIT Orthopaedic Surgery; ATTEND Orthopaedic Surgery
PROC: 0SRD0J9 Replacement of Left Knee Joint with Synthetic Substitute, Cemented, Open Approach (ICD-10-PCS; principal; 2022-01-16 10:26)
DX: M17.12 Unilateral primary osteoarthritis, left knee (principal); I95.1 Orthostatic hypotension; M21.062 Valgus deformity, not elsewhere classified, left knee
CPT/HCPCS: 36415; 73560; 80051; 80053; 82948; 85025; 86885; 86900; 86901; 87081; 87811; 97110; 97116; 97161; 97530; A4215; A7000; C1713; C1776; G0378; J0171; J0690; J0735; J1885; J2250; J2765; J2795; J3010; J3370; J3480; J3490; J7030; J7040; J7060; J7120